=== PATIENT | male | born 1960 | race Caucasian/White ===

== ENCOUNTER 2017-10-16 12:08 | Day surgery (SDC) | payer OTHER ==
[~2017-10-16] VITALS: Ht 177.8 cm; Wt 86.0 kg
[~2017-10-16 12:08] MED LIST: AMIODARONE HCL200 MG PO; ELIQUIS5 MG PO; LISINOPRIL20 MG PO; METOPROLOL TART50 MG PO; OMEPRAZOLE20 MG PO; PRAVASTATIN SOD20 MG PO
== END 2017-10-16 14:40 | disposition home or self-care (01) ==
LOC: CATH 12:08
PROC: 5A2204Z Restoration of Cardiac Rhythm, Single (ICD-10-PCS; principal; 2017-10-16)
PROC: B245ZZ4 Ultrasonography of Left Heart, Transesophageal (ICD-10-PCS; principal; 2017-10-16)
DX: I48.0 Paroxysmal atrial fibrillation (principal); I10 Essential (primary) hypertension; E78.5 Hyperlipidemia, unspecified; Z79.01 Long term (current) use of anticoagulants
CPT/HCPCS: 93005; 93312; J0330